=== PATIENT | female | born 1995 | race Caucasian/White ===

== ENCOUNTER 2022-01-15 11:00 | Outpatient (CLI) | payer MEDICAID, SELFPAY ==
--- NOTE | 2022-01-15 11:10 | US_ITS ---
WS: [id number] ULTRASOUND LEFT BREAST HISTORY: MASS IN LEFT BREAST COMPARISON: None available. TECHNIQUE: 2-D and Doppler. Palpable area LEFT breast at 11:00, 2 cm from the nipple. Very dense fibroglandular tissue with a few small scattered cysts. Small hypoechoic area measuring 4 x 2 x 5 mm which may be a complex cyst or f ibroadenoma. Very benign in appearance. Fibrocystic changes are noted elsewhere. There are no suspici ous masses or shadowing. US/US breast LT limited* [id number] IMPRESSION: BI-RADS: 2-Benign FOLLOW-UP: Age 42 LACK OF RADIOGRAPHIC EVIDENCE OF MALIGNANCY SHOULD NOT DELAY BIOPSY IF A CLINIC ALLY SUSPICIOUS MASS IS PRESENT.
== END 2022-01-15 11:01 | disposition home or self-care (01) ==
PROVIDERS: PCP Nurse Practitioner; Visit Provider Nurse Practitioner
DX: N63.22 Unspecified lump in the left breast, upper inner quadrant (principal)
CPT/HCPCS: 76642